=== PATIENT | male | born 2000 | race Caucasian/White ===

== ENCOUNTER 2023-09-17 08:12 | Outpatient (CLI) | payer BC | END 2023-09-17 08:13 | disposition critical access hospital (66) | LOC: EMS 08:12 | DX: Z04.6 Encounter for general psychiatric examination, requested by authority (principal); R45.851 Suicidal ideations; R07.81 Pleurodynia; S69.91XA Unspecified injury of right wrist, hand and finger(s), initial encounter; X83.8XXA Intentional self-harm by other specified means, initial encounter; F10.129 Alcohol abuse with intoxication, unspecified; Z78.1 Physical restraint status | CPT/HCPCS: A0425; A0429 ==

== ENCOUNTER 2023-09-17 08:40 | Emergency (ER) | payer BC ==
--- NOTE | 2023-09-17 09:11 | ED Physician Documentation ---
PD HPI MHE - Stated complaint Stated Complaint: MHE - Chief complaint Chief Complaint: MHE - History obtained from History obtained from: Patient - History of Present Illness Primary symptom: Suicidal ideation, Aggressive behavior, Other (The patient states he was conversing with a friend from work who was claiming suicidal ideation. This stressed the patient who was then drinking alcohol. Reportedly he became upset and aggressive with punching at his truck and wielding a knife and threatening to hurt himself. PD brought him here.) Timing - onset: How many hours ago (the past coule of hours.) Contributing factors: No: Substance abuse - ETOH, Substance abuse - drugs Similar symptoms before: Has not had sx before Review of Systems Constitutional: denies: Fever, Chills Nose: denies: Rhinorrhea / runny nose, Congestion Throat: denies: Sore throat Respiratory: denies: Cough GI: denies: Vomiting, Diarrhea Psychiatric: reports: Anxiety, Other (He states he does get upset easily and typically acts physically when he is such as punching objects.). denies: Suicidal PD PAST MEDICAL HISTORY - Past Medical History Cardiovascular: None Respiratory: None Endocrine/Autoimmune: None Psych: None - Present Medications Home Medications: Ambulatory Orders Medication Instructions Recorded Confirmed No Known Home Medications 09/17/23 09/17/23 - Allergies Allergies/Adverse Reactions: Allergies Allergy/AdvReac Type Severity Reaction Status Date / Time No Known Drug Allergies Allergy Verified 09/17/23 09:04 - Social History Does the pt smoke?: No Smoking Status: Never smoker Does the pt drink ETOH?: Yes PD ED PE NORMAL - Vitals Vital signs reviewed: Yes - General General: Alert and oriented X 3, Well developed/nourished, Other (He is pleasant and interacting and actually trying to make jokes on first assessment.) - HEENT HEENT: Atraumatic - Cardiac Cardiac: RRR, No murmur - Respiratory Respiratory: No respiratory distress, Clear bilaterally - Abdomen Abdomen: Soft, Non tender - Derm Derm: Normal color, Warm and dry - Extremities Extremities: Other (The right hand shows bruising over the middle ring and little finger MCPs. No obvious deformity to palpation. Stiffness with movement due to swelling. He declines x-ray.) - Neuro Neuro: Alert and oriented X 3, No motor deficit, Normal speech Results - Vitals Vitals: Vital Signs - 24 hr 09/17/23 08:54 Temperature 37 C Heart Rate 94 Respiratory 15 Rate Blood Pressure 138/118 H O2 Saturation 98 Oxygen O2 Source Room air - Labs Labs: Laboratory Tests 09/17/23 09/17/23 09/17/23 09:13 09:23 09:23 WBC 11.5 H RBC 5.26 Hgb 15.7 Hct 46.6 MCV 88.6 MCH 29.8 MCHC 33.7 RDW 12.7 Plt Count 326 MPV 10.9 Neut # (Auto) 8.5 H Lymph # (Auto) 2.1 [place] # (Auto) 0.9 Eos # (Auto) 0.0 Baso # (Auto) 0.0 Absolute Nucleated RBC 0.00 Nucleated RBC % 0.0 Sodium 138 Potassium 3.5 Chloride 102 Carbon Dioxide 23 Anion Gap 13.0 BUN 9 Creatinine 0.8 Estimated GFR (MDRD) 122 Glucose 113 H Calcium 10.2 Magnesium 1.8 Total Bilirubin 0.5 AST 33 ALT 68 H Alkaline Phosphatase 71 Total Creatine Kinase 275 H Total Protein 8.2 Albumin 5.2 Globulin 3.0 Albumin/Globulin Ratio 1.7 Lipase 29 TSH 2.08 Urine Color YELLOW Urine Clarity CLEAR Urine pH 6.0 Ur Specific [place] <=1.005 Urine Protein NEGATIVE Urine Glucose (UA) NEGATIVE Urine Ketones NEGATIVE Urine Occult Blood NEGATIVE Urine Nitrite NEGATIVE Urine Bilirubin NEGATIVE Urine Urobilinogen 0.2 (NORMAL) Ur Leukocyte Esterase NEGATIVE Ur Microscopic Review NOT INDICATED Urine Culture Comments NOT INDICATED Salicylates < 1.5 Urine Opiates Screen NEGATIVE Ur Buprenorphine Scrn NEGATIVE Ur Oxycodone Screen NEGATIVE Urine Methadone Screen NEGATIVE Acetaminophen 0.1 Ur Barbiturates Screen NEGATIVE Ur Tricyclics Screen NEGATIVE Ur Phencyclidine Scrn NEGATIVE Ur Amphetamine Screen NEGATIVE U Methamphetamines Scrn NEGATIVE U Benzodiazepines Scrn NEGATIVE Urine Cocaine Screen NEGATIVE U Cannabinoids Screen NEGATIVE Ur Drug Screen Comment CUTOFF CONC BELOW: Ethyl Alcohol 116.5 SARS-CoV-2 (PCR) 09/17/23 09/17/23 11:07 12:11 WBC RBC Hgb Hct MCV MCH MCHC RDW Plt Count MPV Neut # (Auto) Lymph # (Auto) [place] # (Auto) Eos # (Auto) Baso # (Auto) Absolute Nucleated RBC Nucleated RBC % Sodium Potassium Chloride Carbon Dioxide Anion Gap BUN Creatinine Estimated GFR (MDRD) Glucose Calcium Magnesium Total Bilirubin AST ALT Alkaline Phosphatase Total Creatine Kinase Total Protein Albumin Globulin Albumin/Globulin Ratio Lipase TSH Urine Color Urine Clarity Urine pH Ur Specific [place] Urine Protein Urine Glucose (UA) Urine Ketones Urine Occult Blood Urine Nitrite Urine Bilirubin Urine Urobilinogen Ur Leukocyte Esterase Ur Microscopic Review Urine Culture Comments Salicylates Urine Opiates Screen Ur Buprenorphine Scrn Ur Oxycodone Screen Urine Methadone Screen Acetaminophen Ur Barbiturates Screen Ur Tricyclics Screen Ur Phencyclidine Scrn Ur Amphetamine Screen U Methamphetamines Scrn U Benzodiazepines Scrn Urine Cocaine Screen U Cannabinoids Screen Ur Drug Screen Comment Ethyl Alcohol 70.6 SARS-CoV-2 (PCR) NOT DETECTED PD Medical Decision Making - ED course Complexity details: re-evaluated patient (The patient has had time for lowering of his blood alcohol. He is calm and interacting. We will have social work talk with him.), considered differential (The patient reportedly was making self-harm gestures with a knife and quite upset. He states he had been drinking alcohol but no substance use otherwise. No history of the same. Initially here still seems intoxicated so unreliable as far as his current intents.), d/w patient ED course: Social work related to me that she is not comfortable clearing the patient as he was a little bit elusive on if you would call for help if he had problems and also not really recalling the events from earlier. Social work felt a DCR evaluation was appropriate to ascertain better safety outcome. The patient's labs are within normal limits essentially. Minimal elevation of the white count seems insignificant. He has some contusion of the hand which we can treat with some anti-inflammatories. Potential splint just for comfort. The patient is medically cleared at this point for psychiatric and psychological evaluation. The patient was seen by social work. It was unclear on his cooperativity of regarding safety planning and social work felt DCR evaluation was appropriate. The patient was interviewed by DCR and had a similar conclusion about concern for impulsivity and safety and felt he should be detained. The patient was notified of this. We do have the bed alarm on to alert us if he tries to leave, there is the flight risk sign by his door and I ordered one-to-one observation. Departure - Departure Disposition: [facility] Hosp/Unit DC/Xfer Clinical Impression: Hand contusion, Alcohol intoxication, Suicide gesture Condition: Stable Record reviewed to determine appropriate education?: Yes Forms: PCP List
[2023-09-17 09:29] LABS: BILIRUBIN,URINE NEGATIVE (NEGATIVE); GLUCOSE, URINE (UA) NEGATIVE (NEGATIVE); KETONES,URINE (UA) NEGATIVE (NEGATIVE); LEUKOCYTE ESTERASE, URINE NEGATIVE (NEGATIVE); NITRITE,URINE NEGATIVE (NEGATIVE); OCCULT BLOOD,URINE NEGATIVE (NEGATIVE); PROTEIN,URINE NEGATIVE (NEGATIVE); UROBILINOGEN,URINE 0.2 (NORMAL) E.U./dL (NORMAL)
[2023-09-17 09:30] LABS: CLARITY,URINE CLEAR (CLEAR)
[2023-09-17 09:32] LABS: BASOPHILS % (AUTO) 0.2 %; EOSINOPHILS % (AUTO) 0.2 %; HCT - HEMATOCRIT 46.6 % (42.0-52.0); HGB - HEMOGLOBIN 15.7 g/dL (14.0-18.0); LYMPHOCYTES # (AUTO) 2.1 10^3/uL (1.5-3.5); LYMPHOCYTES % (AUTO) 17.8 %; MEAN CORPUSCULAR HEMOGLOBIN 29.8 pg (27.0-31.0); MEAN CORPUSCULAR HGB CONC 33.7 g/dL (32.0-36.0); MEAN CORPUSCULAR VOLUME 88.6 fL (80.0-94.0); MEAN PLATELET VOLUME 10.9 fL (7.4-11.4); MONOCYTES # (AUTO) 0.9 10^3/uL (0.0-1.0); MONOCYTES % (AUTO) 7.5 %; NEUTROPHILS # (AUTO) 8.5 10^3/uL (1.5-6.6); NEUTROPHILS % (AUTO) 73.8 %; PLT - PLATELET COUNT 326 10^3/uL (130-450); RED BLOOD COUNT 5.26 10^6/uL (4.70-6.10); RED CELL DISTRIBUTION WIDTH 12.7 % (12.0-15.0); WHITE BLOOD COUNT 11.5 x10^3/uL (4.8-10.8)
[2023-09-17 09:40] LABS: AMPHETAMINE SCREEN,URINE NEGATIVE (NEGATIVE); BARBITURATE SCREEN,UR NEGATIVE (NEGATIVE); BENZODIAZEPINES SCREEN, URINE NEGATIVE (NEGATIVE); BUPRENORPHINE SCREEN, URINE NEGATIVE (NEGATIVE); COCAINE SCREEN URINE NEGATIVE (NEGATIVE); METHADONE SCREEN, URINE NEGATIVE (NEGATIVE); METHAMPHETAMINES SCREEN, URINE NEGATIVE (NEGATIVE); OPIATE SCREEN, URINE NEGATIVE (NEGATIVE); OXYCODONE SCREEN, URINE NEGATIVE (NEGATIVE); THC CANNABINOID SCREEN, URINE NEGATIVE (NEGATIVE); TRICYCLIC ANTIDEPRESSANT,URINE NEGATIVE (NEGATIVE)
[2023-09-17 09:44] LABS: ACETAMINOPHEN 0.1 ug/mL; ALBUMIN 5.2 g/dL (3.2-5.5); ALBUMIN/GLOBULIN RATIO 1.7 (1.0-2.2); ALKALINE PHOSPHATASE 71 IU/L (42-121); ALT ALANINE AMINOTRANSFERASE 68 IU/L (10-60); AST ASPARTATE AMINOTRANSFERASE 33 IU/L (10-42); BILIRUBIN,TOTAL 0.5 mg/dL (0.2-1.0); BUN - BLOOD UREA NITROGEN 9 mg/dL (6-20); CALCIUM 10.2 mg/dL (8.5-10.3); CARBON DIOXIDE - CO2 23 mmol/L (21-32); CHLORIDE 102 mmol/L (101-111); CK- CREATINE KINASE 275 IU/L (30-223); CREATININE 0.8 mg/dL (0.6-1.3); ETOH - ETHANOL 116.5 mg/dL; GFR - MDRD 122 (>89); GLUCOSE 113 mg/dL (74-104); LIPASE 29 U/L (11-82); MAGNESIUM 1.8 mg/dL (1.7-2.3); POTASSIUM 3.5 mmol/L (3.5-4.5); SODIUM 138 mmol/L (135-145); TOTAL PROTEIN 8.2 g/dL (6.4-8.9)
[2023-09-17 09:45] LABS: SALICYLATE < 1.5 mg/dL
[2023-09-17 09:59] LABS: THYROID STIMULATING HORMONE 2.08 uIU/mL (0.34-5.60)
[2023-09-17] MEDS ORDERED: IBUPROFEN 600 MG TABLET PO STA (13:30)
[2023-09-17 19:43] VITALS: BP 132/70; O2SAT 97
--- NOTE | 2023-09-17 19:59 | ED Physician Documentation ---
ED Addendum - Addendum Addendum: 09/17/23 19:[address] Lopez at 6 PM shift change pending DCR evaluation. Seen by DCR Cere who has assessed that he is safe for discharge and has created a plan where the [facility] mobile crisis outreach team will reach out to him tomorrow and family also given resources. Disposition: Discharge home Condition: Stable
== END 2023-09-17 20:02 | disposition home or self-care (01) ==
LOC: ED 08:40
DX: R45.851 Suicidal ideations (principal); S60.221A Contusion of right hand, initial encounter; W22.8XXA Striking against or struck by other objects, initial encounter; F10.129 Alcohol abuse with intoxication, unspecified; Y90.3 Blood alcohol level of 60-79 mg/100 ml
CPT/HCPCS: 36415; 80053; 80306; 80307; 80320; 80329; 81003; 82550; 83690; 83735; 84443; 85025; 87635; 99283; 99284; A9270; 81001; 87086